=== PATIENT | female | born 1970 | race African-American/Black ===

== ENCOUNTER 2018-01-25 12:21 | Emergency (ER) | payer MEDICAID ==
[~2018-01-25] VITALS: Ht 167.6 cm; Wt 116.1 kg
[~2018-01-25 12:21] MED LIST: ACETAMINOPHEN-1 EAC1 PO; AMLODIPINE BESY10 MG PO; AMOXICILLIN500 M1 PO; AUGMENTIN 875875 MG PO; BUTALB-APAP-CA1 EACH PO; CARAFATE 1 GM TA1 G1 PO; CIPRO500 MG PO; CYCLOBENZAPRINE5 MG PO; DOXYCYCLINE 10100 MG PO; FLAGYL500 MG PO; FLEXERIL PO; HYDROCHLOROTHIA25 M1 PO; HYDROCODON-ACE1 EAC7 PO; HYDROCODONE-AP1 EAC6 PO; IBUPROFEN 800800 M1 PO; IBUPROFEN 800800 MG PO; KEFLEX500 MG PO; LISINOPRIL10 MG PO; LOPRESSOR; MAGIC MOUTHWASH PO; MEDROLDOSEPACK PO; NORCO 5-325 TA1 EACH PO; PEPCID20 MG PO; PHENERGAN 25 MG25 M1 PO; PRINIVIL10 MG PO; PYRIDIUM100 M1 PO; TAMIFLU75 MG PO; TESSALON200 MG PO; WELLBUTRIN; WELLBUTRIN SR150 MG PO; ZOFRAN ODT4 MG PO; ZOLOFT50 M1 PO; ZPAK PO; [UNRECOGNIZED DRUG - REMARK]
[2018-01-25] MEDS ORDERED: LOPRESSOR50 PO (12:34)
[2018-01-25] MEDS ORDERED: TRAMADOL 50 MG50 MG PO (14:25)
[2018-01-25 14:31] VITALS: BP 123/73
== END 2018-01-25 14:32 | disposition home or self-care (01) ==
LOC: M.ERS 12:21
DX: M25.562 Pain in left knee (principal); L72.8 Other follicular cysts of the skin and subcutaneous tissue; I10 Essential (primary) hypertension

== ENCOUNTER 2018-03-24 13:30 | Emergency (ER) | payer MEDICAID ==
[~2018-03-24] VITALS: Ht 167.6 cm; Wt 117.9 kg
[~2018-03-24 13:30] MED LIST changes: +LOPRESSOR50 PO; +TRAMADOL 50 MG50 MG PO
[2018-03-24 13:36] VITALS: BP 133/85
[2018-03-24] MEDS ORDERED: FLONASE 0.05%50 MCG NASAL (13:58)
[2018-03-24] MEDS ORDERED: ZPAK PO (13:58)
== END 2018-03-24 14:09 | disposition home or self-care (01) ==
LOC: M.ERS 13:30
DX: J01.00 Acute maxillary sinusitis, unspecified (principal); I10 Essential (primary) hypertension; K08.89 Other specified disorders of teeth and supporting structures; H92.09 Otalgia, unspecified ear

== ENCOUNTER 2018-08-29 13:02 | Emergency (ER) | payer MEDICAID ==
[~2018-08-29] VITALS: Ht 167.6 cm; Wt 127.0 kg
[~2018-08-29 13:02] MED LIST changes: +FLONASE 0.05%50 MCG NASAL
[2018-08-29 14:03] LABS: POTASSIUM 3.5 mmol/L (3.5-5.1)
[2018-08-29 14:28] LABS: CALCIUM 8.4 mg/dL (8.5-10.1); CREATININE 1.2 mg/dL (0.6-1.3); MAGNESIUM 1.8 mg/dL (1.8-2.4)
[2018-08-29] MEDS ORDERED: MEDROLDOSEPACK PO (14:34)
[2018-08-29 14:41] VITALS: BP 122/73
== END 2018-08-29 14:42 | disposition home or self-care (01) ==
LOC: M.ERS 13:02
PROVIDERS: Nurse Practitioner Family
DX: M25.561 Pain in right knee (principal); M25.461 Effusion, right knee; I10 Essential (primary) hypertension; Z98.890 Other specified postprocedural states; Z90.10 Acquired absence of unspecified breast and nipple

== ENCOUNTER 2019-07-07 05:49 | Emergency (ER) | payer MEDICAID ==
[~2019-07-07] VITALS: Ht 167.6 cm; Wt 142.6 kg
[~2019-07-07 05:49] MED LIST changes: +NORCO 5-325 TA1 EAC1 PO
[2019-07-07] MEDS ORDERED: TOPROL XL25 MG PO (06:01)
[2019-07-07] MEDS ORDERED: ACETAMINOPHEN-1 EAC2 PO (06:31)
[2019-07-07] MEDS ORDERED: MELOXICAM15 MG PO (06:31)
[2019-07-07 07:02] VITALS: BP 114/64
[2019-07-07] MEDS ORDERED: OTHER MISCELL (07:02)
== END 2019-07-07 07:02 | disposition home or self-care (01) ==
LOC: M.ERS 05:49
DX: S83.8X2A Sprain of other specified parts of left knee, initial encounter (principal); I10 Essential (primary) hypertension; Z98.890 Other specified postprocedural states; Z90.49 Acquired absence of other specified parts of digestive tract; W50.2XXA Accidental twist by another person, initial encounter; Y93.89 Activity, other specified; Y92.89 Other specified places as the place of occurrence of the external cause; Y99.8 Other external cause status

== ENCOUNTER 2020-04-24 20:34 | Emergency (ER) | payer MEDICAID ==
[~2020-04-24] VITALS: Ht 167.6 cm; Wt 140.6 kg
[~2020-04-24 20:34] MED LIST changes: +ACETAMINOPHEN-1 EAC2 PO; +MELOXICAM15 MG PO; +OTHER MISCELL; +TOPROL XL25 MG PO
[2020-04-24] MEDS ORDERED: SUPER THERAVIT1 EACH PO (20:55)
[2020-04-24] MEDS ORDERED: DESYREL150 MG PO (20:55)
[2020-04-24] MEDS ORDERED: HYDROXYZINE HCL25 M2 PO (20:56)
[2020-04-24 21:24] VITALS: BP 151/91
== END 2020-04-24 21:27 | disposition home or self-care (01) ==
LOC: M.ERS 20:34
DX: S80.11XA Contusion of right lower leg, initial encounter (principal); I10 Essential (primary) hypertension; Z98.890 Other specified postprocedural states; Z90.49 Acquired absence of other specified parts of digestive tract; W22.8XXA Striking against or struck by other objects, initial encounter; Y93.89 Activity, other specified; Y92.89 Other specified places as the place of occurrence of the external cause; Y99.8 Other external cause status

== ENCOUNTER 2020-11-12 14:42 | Emergency (ER) | payer MEDICAID ==
[~2020-11-12] VITALS: Ht 167.6 cm; Wt 142.0 kg
[~2020-11-12 14:42] MED LIST changes: +DESYREL150 MG PO; +HYDROXYZINE HCL25 M2 PO; +SUPER THERAVIT1 EACH PO
[2020-11-12 15:14] LABS: ABSOLUTE BASOPHILS 0.1 thou/uL (0.0-0.2); ABSOLUTE EOSINOPHILS 0.1 thou/uL (0.0-0.7); ABSOLUTE LYMPHOCYTES 1.8 thou/uL (0.8-5.3); ABSOLUTE MONOCYTES 0.8 thou/uL (0.0-1.2); ABSOLUTE NEUTROPHILS 2.9 thou/uL (1.6-8.1); BASOPHILS 1.5 %; EOSINOPHILS 1.3 %; HEMATOCRIT 26.5 % (37.0-47.0); HEMOGLOBIN 7.9 gm/dL (12.0-15.0); LYMPHOCYTES 31.3 %; MCH 20.7 pg (26.0-34.0); MCHC 29.9 g/dL (28.0-37.0); MCV 69.2 fL (80.0-100.0); MPV 8.6 fl. (7.2-11.1); NUCLEATED RBCS 0 /100WBC; PLATELET COUNT* 325 thou/uL (150-400); POLYS 50.9 %; RBC 3.83 mil/uL (4.20-5.00); RDW-CV 18.9 % (10.5-14.5); WBC 5.6 thou/uL (4.0-11.0)
[2020-11-12 15:17] LABS: CALCIUM 8.5 mg/dL (8.5-10.1); CREATININE 1.1 mg/dL (0.6-1.3); POTASSIUM 3.6 mmol/L (3.5-5.1)
[2020-11-12 15:27] LABS: APTT 24.4 Seconds (25.0-31.3); PROTIME 10.3 Seconds (9.20-11.50)
[2020-11-12 15:29] LABS: ALBUMIN 3.2 g/dL (3.4-5.0); TOTAL BILIRUBIN 0.6 mg/dL (<0.1-1.0); TOTAL PROTEIN 6.7 g/dL (6.4-8.2)
[2020-11-12 15:39] LABS: ANISOCYTOSIS 1+; PLATELET ESTIMATE ADEQUATE
[2020-11-12 15:40] LABS: HYPOCHROMASIA 2+; MACROCYTES 1+
[2020-11-12 15:41] LABS: LARGE PLATELETS OCCASIONAL; OVALOCYTES Occasional
--- NOTE | 2020-11-12 16:23 | EKG ---
[place] [address] ELECTROCARDIOGRAM REPORT Name: NASIM TIERNEY Room: [facility]#: [id number] Admission: 11/12/20 Attend Phys: Discharge: Date of : 72 Date of Service: 11/12/20 1447 Report #: [id number] THIS REPORT FOR: //name// [facility] ED Test Date: 2020-11-12 Test Time: 14:47:55 Pat Name: NASIM TIERNEY Department: Room: Gender: Medical Education Coordinator: [facility] : 1970 Requested By: Tanya Osorio Order Number: [id number] MD: Jef Hirsch Measurements Intervals [place] Rate: 84 P: 35 [place]: 178 QRS: 14 QRSD: 90 T: 148 QT: 364 QTc: 431 Interpretive Statements Sinus rhythm Nonspecific T abnormalities, lateral leads Compared to ECG 03/09/2015 07:28:08 No significant changes Electronically Signed On 11-12-2020 16:23:35 SQL DATA ANALYST by Jef Hirsch [email or web address] <ELECTRONICALLY SIGNED> By: Jef Hirsch MD, [facility] 11/12/20 1623 1447 1447 Jef Hirsch MD, [facility] /EPI
[2020-11-12] MEDS ORDERED: VENTOLIN HFA 1818 GM INH (17:10)
[2020-11-12 17:23] VITALS: BP 105/58
== END 2020-11-12 17:24 | disposition home or self-care (01) ==
LOC: M.ERS 14:42
PROVIDERS: Nurse Practitioner Family
DX: D64.9 Anemia, unspecified (principal); R00.2 Palpitations; R06.00 Dyspnea, unspecified; Z20.822 Contact with and (suspected) exposure to COVID-19; I10 Essential (primary) hypertension; Z98.890 Other specified postprocedural states; Z90.49 Acquired absence of other specified parts of digestive tract

== ENCOUNTER 2021-04-11 10:46 | Emergency (ER) | payer MEDICAID ==
[~2021-04-11] VITALS: Ht 167.6 cm; Wt 149.7 kg
[~2021-04-11 10:46] MED LIST changes: +VENTOLIN HFA 1818 GM INH
[2021-04-11 12:32] VITALS: BP 156/88
== END 2021-04-11 12:33 | disposition left against medical advice (07) ==
LOC: M.ERS 10:46
DX: Z53.21 Procedure and treatment not carried out due to patient leaving prior to being seen by health care provider (principal)

== ENCOUNTER 2021-09-16 16:16 | Emergency (ER) | payer MEDICAID ==
[~2021-09-16] VITALS: Ht 167.6 cm; Wt 147.0 kg
[2021-09-16] MEDS ORDERED: TOPROL XL100 MG PO (17:25)
[2021-09-16 20:03] LABS: URINE BILIRUBIN NEGATIVE (Negative); URINE BLOOD 3+ (Negative); URINE CLARITY CLEAR; URINE COLOR YELLOW; URINE GLUCOSE-RANDOM NEGATIVE (Negative); URINE KETONES TRACE (Negative); URINE LEUKOCYTES NEGATIVE (Negative); URINE NITRITE NEGATIVE (Negative); URINE PROTEIN NEGATIVE (Negative); URINE SPECIFIC GRAVITY >= 1.030 (1.005-1.030); URINE UROBILINOGEN 0.2 E.U./dl (0.2-1.0)
[2021-09-16] MEDS ORDERED: NORFLEX100 MG PO (20:04)
[2021-09-16 20:16] LABS: BACTERIA 1-9 Few /HPF (None Seen); CASTS None Seen /LPF (None Seen); CRYSTALS None Seen /LPF (None Seen); SQUAMOUS >10 Many /LPF (0-3); URINE RBC 3-10 Few /HPF (0-2); URINE WBC 0-5 Rare /HPF (0-5)
[2021-09-16 20:19] VITALS: BP 168/69
--- NOTE | 2021-09-17 11:03 | EKG ---
[place] [address] ELECTROCARDIOGRAM REPORT Name: NASIM TIERNEY Room: [facility]#: [id number] Admission: 09/16/21 Attend Phys: Discharge: 09/16/21 Date of : 72 Date of Service: 09/16/21 1900 Report #: [id number] THIS REPORT FOR: //name// [facility] ED Test Date: 2021-09-16 Test Time: 19:00:45 Pat Name: NASIM TIERNEY Department: Room: Gender: F Plumber: : 1970 Requested By: Saul Sparks Order Number: [id number] MD: Jef Hirsch Measurements Intervals [place] Rate: 64 P: 34 [place]: 180 QRS: 27 QRSD: 89 T: 127 QT: 409 QTc: 422 Interpretive Statements Sinus rhythm Abnormal T, consider ischemia, lateral leads Compared to ECG 11/12/2020 14:47:55 T-wave abnormality still present Electronically Signed On 09-17-2021 11:03:13 W[employer]UR[employer] INSTALLER by Jef Hirsch [email or web address] <ELECTRONICALLY SIGNED> By: Jef Hirsch MD, FAC 09/17/21 1103 1900 1900 Jef Hirsch MD, [facility] /EPI
== END 2021-09-16 20:19 | disposition home or self-care (01) ==
LOC: M.ERS 16:16
PROVIDERS: Physician Assistant
DX: M54.50 Low back pain, unspecified (principal); I10 Essential (primary) hypertension; Z98.890 Other specified postprocedural states; Z79.899 Other long term (current) drug therapy